=== PATIENT | male | born 1945 | race Caucasian/White ===

== ENCOUNTER → 2017-08-24 | Outpatient (CLI) | payer MEDICARE ==
[~2017-08-24] MED LIST: 1-ME1LIQ PO; ADVA500A INH; ALBU8I INH; ALPR0.5T7 SL; AMLO10TA2 PO; ASPI81TA23 PO; ASPI81TA82 PO; ASTE0.15 EACH NARE; ATOR80TA PO; ATOR80TA45 PO; BUSP5TAB PO; COLB500.5 PO; COZA100T PO; CYAN25005 PO; DICY10CA12 PO; DULC100C PO; DULC5TAB PO; FENO160T PO; FENO160T2 PO; FLAX1000 PO; FLUT50SP EACH NARE; FOLI1 PO; GABA300C5 PO; GLUC500T4 PO; GLUCTAB6 PO; IBUP600T26 PO; LOSA100T PO; MONT10TA4 PO; MULT-65 PO; NIAC100T3 PO; PERC5TAB12 PO; ROBA750T3 PO; SALM1000 PO; SALM10002 PO; SM F10002 PO; VIAG100T PO; VITA2000 PO; ZOLP10TA3 PO; [UNRECOGNIZED DRUG - CODE] SL; [UNRECOGNIZED DRUG - CODE] TOP; [UNRECOGNIZED DRUG - CODE] TOPICAL
[2017-08-24 08:45] LABS: BILIRUBIN, URINE NEG (NEG); BLOOD, URINE NEG (NEG); GLUCOSE,URINE NEG (NEG); KETONE, URINE NEG (NEG); NITRITE,URINE NEG (NEG); PH, URINE 6.5 (5.0-8.5); URINE COLOR YELLOW (YELLW/STRAW); URINE LEUKOCYTE ESTERASE NEG (NEG)
[2017-08-24 08:51] LABS: HEMOGLOBIN 15.2 GM/DL (13.0-17.0); MEAN CELL VOLUME 91.9 FL (80.0-100.0); MEAN CORPUSCULAR HGB CONC 33.8 % (32.0-36.0); PLATELET COUNT 247 TH/MM3 (150-450); RED CELL DISTRIBUTION WIDTH 14.5 % (11.6-17.2); WHITE BLOOD COUNT 5.3 TH/MM3 (4.0-11.0)
[2017-08-24 08:54] LABS: INTERNATIONAL NORMALIZED RATIO 1.1 RATIO; PROTHROMBIN TIME - PATIENT 11.1 SEC (9.8-11.6)
[2017-08-24 09:16] LABS: BICARBONATE 28.4 MEQ/L (21.0-32.0); CALCIUM 8.7 MG/DL (8.5-10.1); CREATININE 1.41 MG/DL (0.60-1.30)
== END ==
LOC: CPRE 08:00
PROVIDERS: ATTEND Orthopaedic Surgery
DX: Z01.812 Encounter for preprocedural laboratory examination (principal); M79.609 Pain in unspecified limb; M17.11 Unilateral primary osteoarthritis, right knee; I10 Essential (primary) hypertension
CPT/HCPCS: 36415; 80048; 81001; 85027; 85610; 85730

== ENCOUNTER 2017-09-07 05:13 | Day surgery (SDC) | payer MEDICARE ==
[~2017-09-07] VITALS: Ht 175.3 cm; Wt 95.8 kg
[~2017-09-07 05:13] MED LIST changes: -1-ME1LIQ PO; -ALBU8I INH; -ASPI81TA82 PO; -ASTE0.15 EACH NARE; -ATOR80TA PO; -COZA100T PO; -DULC5TAB PO; -FENO160T2 PO; -FOLI1 PO; -GLUCTAB6 PO; -IBUP600T26 PO; -MULT-65 PO; -NIAC100T3 PO; -PERC5TAB12 PO; -ROBA750T3 PO; -SALM1000 PO; -SM F10002 PO; -VIAG100T PO; -[UNRECOGNIZED DRUG - CODE] SL; -[UNRECOGNIZED DRUG - CODE] TOP
[2017-09-07] MEDS ORDERED: CHLORHEXIDINE GLUCONATE 2 % 1 PACK (2 CLOTHS) TOPICAL PRN (05:30)
[2017-09-07] MEDS ORDERED: SODIUM CHLORID 0.9% 500 ML IV PRN (05:30)
[2017-09-07] MEDS ORDERED: CHLORHEXIDINE GLUCONATE 4% SOLN 120 ML BTL TOPICAL SCH (05:30)
[2017-09-07] MEDS ORDERED: POVIDONE IODINE 5% (ANTISEPSIS KIT) 4 APPLICATIONS EACH NARE PRN (05:30)
[2017-09-07] MEDS ORDERED: METOPROLOL TARTRATE 25 MG TAB PO PRN (05:30)
[2017-09-07] MEDS ORDERED: ceFAZolin 2 GM PREMIX 50 ML IV SCH (05:30)
[2017-09-07] MEDS ORDERED: LACTATED RINGER'S 1000 ML IV PRN (05:30)
[2017-09-07 05:49] VITALS: BP 159/93; PULSE 69; RESP 18; TEMP 99; O2SAT 97
[2017-09-07] MEDS ORDERED: GENTAMICIN SULFATE 80 MG/2 ML VIAL ONE (06:17)
[2017-09-07] MEDS ORDERED: ACETAMINOPHEN 1000 MG/100 ML 0 ML IV ONE (06:25)
[2017-09-07] MEDS ORDERED: FAMOTIDINE 20 MG/2 ML VIAL ONE (06:25)
[2017-09-07] MEDS ORDERED: TRANEXAMIC ACID IV SCH ×2 (07:00→10:00)
[2017-09-07] MEDS ORDERED: EXPAREL PERI-ARTICULAR INJECTION (TOTAL VOL. 100 ML) P-ARTICULR SCH ×2 (07:00)
[2017-09-07] MEDS ORDERED: SODIUM CHLORIDE 0.9% IV SCH ×2 (07:00→10:00)
== END 2017-09-07 06:40 | disposition home or self-care (01) ==
LOC: HSDC 05:13 → HSDI 05:13 → UNDOADMIN 05:13 → HSDC 06:40 → EDSTATUS 07:00
PROVIDERS: ATTEND Orthopaedic Surgery
DX: M17.11 Unilateral primary osteoarthritis, right knee (principal); M79.609 Pain in unspecified limb; I10 Essential (primary) hypertension; R23.4 Changes in skin texture; Z53.09 Procedure and treatment not carried out because of other contraindication
CPT/HCPCS: 27447; C9290; J0131; J1580

== ENCOUNTER 2017-09-14 05:15 | Inpatient (IN) | payer MEDICARE ==
[~2017-09-14] VITALS: Ht 175.3 cm; Wt 95.7 kg
[2017-09-14] MEDS ORDERED: LACTATED RINGER'S 1000 ML IV PRN (05:45)
[2017-09-14] MEDS ORDERED: SODIUM CHLORID 0.9% 500 ML IV PRN (05:45)
[2017-09-14] MEDS ORDERED: POVIDONE IODINE 5% (ANTISEPSIS KIT) 4 APPLICATIONS EACH NARE PRN (05:45)
[2017-09-14] MEDS ORDERED: METOPROLOL TARTRATE 25 MG TAB PO PRN (05:45)
[2017-09-14] MEDS ORDERED: CHLORHEXIDINE GLUCONATE 2 % 1 PACK (2 CLOTHS) TOPICAL PRN (05:45)
[2017-09-14] MEDS ORDERED: POLY17PO3 PO (06:07)
[2017-09-14] MEDS ORDERED: CETI10CA3 PO (06:09)
[2017-09-14] MEDS ORDERED: GENTAMICIN SULFATE 80 MG/2 ML VIAL ONE (06:14)
[2017-09-14] MEDS ORDERED: ACETAMINOPHEN 1000 MG/100 ML 100 ML IV ONE (06:32)
[2017-09-14] MEDS ORDERED: PROPOFOL 500 MG/50 ML INJ 50 ML ONE (06:33)
[2017-09-14] MEDS ORDERED: FAMOTIDINE 20 MG/2 ML VIAL ONE (06:33)
[2017-09-14] MEDS ORDERED: BUPIVACAINE LIPOSOME PF 1.3% 20 ML VIAL ONE ×2 (06:33→15:11)
[2017-09-14] MEDS ORDERED: ceFAZolin 2 GM PREMIX 50 ML ONE (06:34)
--- NOTE | 2017-09-14 06:56 | HHI.FF ---
Face to Face Verification Diagnosis: (1) Status post total right knee replacement Physical Therapy Gait training Knee: Total knee, Protocol: Right, Gait training, Full weight bearing Right LE Weight Bearing: WB as tolerated Right LE Range of Motion: Active ROM (AROM, AAROM, PROM. ROM goal is 0 to 135 degrees.) Nursing Nursing: Dressing changes (to start on postop day 7.) Dressing Changes: Daily dressing change (to start on postop day 7.), Coverderm/ Prim[place] Additional Instructions Remove steristrips on postop day 14. I have seen patient Xavier Croft on 09/14/17. My clinical findings support the need for the requested home health care services because: Ltd mobility - disease progression Limited ability to care for self High risk of falls I certify that my clinical findings support that this patient is homebound because: Post-op weakness Unsteady gait/balance Unsafe to leave home unassisted Santosh Gordon MD (Charles) Sep 14, 2017 06:56
[2017-09-14] MEDS ORDERED: ACETAMINOPHEN/HYDROcodone 325 MG/7.5 MG TAB PO PRN (07:00)
[2017-09-14] MEDS ORDERED: MAGNESIUM HYDROXIDE SUSP 30 ML CUP PO PRN (07:00)
[2017-09-14] MEDS ORDERED: Post-op Orders (for Pharmacy) XX ONE (07:00)
[2017-09-14] MEDS ORDERED: MORPHINE SULFATE 4 MG/ML INJ IV PUSH PRN (07:00)
[2017-09-14] MEDS ORDERED: DICYCLOMINE HCL 10 MG CAP PO PRN (07:00)
[2017-09-14] MEDS ORDERED: ONDANSETRON HCL 4 MG/2 ML VIAL IVP PRN (07:00)
[2017-09-14] MEDS ORDERED: POLYETHYLENE GLYCOL 17 GM PKG PO PRN (07:00)
[2017-09-14] MEDS ORDERED: ZOLPIDEM TARTRATE 5 MG TAB PO PRN (07:00)
[2017-09-14] MEDS ORDERED: LORATADINE 10 MG TAB PO PRN (07:00)
[2017-09-14] MEDS ORDERED: TRANEXAMIC ACID IV SCH ×2 (07:00→10:00)
[2017-09-14] MEDS: KETOROLAC TROMETHAMINE 30 MG/ML (IVP) VIAL IVP SCH ×3 (07:00→19:00)
[2017-09-14] MEDS ORDERED: SODIUM CHLORIDE 0.9% IV SCH ×2 (07:00→10:00)
[2017-09-14] MEDS ORDERED: EXPAREL PERI-ARTICULAR INJECTION (TOTAL VOL. 100 ML) P-ARTICULR SCH ×2 (07:00)
[2017-09-14] MEDS ORDERED: ALPRAZolam 0.5 MG TAB SL PRN (07:00)
[2017-09-14] MEDS: FENOFIBRATE 145 MG TAB PO SCH (09:00)
[2017-09-14] MEDS ORDERED: GLUCOSAMINE CHONDROITIN PO SCH (09:00)
[2017-09-14] MEDS ORDERED: NUTRITIONAL SUPPLEMENTS PO SCH (09:00)
[2017-09-14] MEDS: busPIRone HCL 5 MG TAB PO SCH (09:00)
[2017-09-14] MEDS ORDERED: [UNRECOGNIZED DRUG - OTHER] PO SCH (09:00)
[2017-09-14] MEDS: CYANOCOBALAMIN 1,000 MCG TAB PO SCH (09:00)
[2017-09-14] MEDS: FLUTICASONE PROPIONATE 50 MCG/ACT 16 GM NASAL SPRAY EACH NARE SCH (09:00)
[2017-09-14] MEDS ORDERED: NON-FORMULARY DRUG (Fluticasone-Salmeterol Inh (Advair Diskus Inh) 1 PUFF) INH SCH (09:00)
[2017-09-14] MEDS: ASPIRIN EC 81 MG TABEC PO SCH ×2 (09:00→21:37)
[2017-09-14] MEDS: LOSARTAN 50 MG TAB PO SCH (09:00)
[2017-09-14] MEDS: CHOLECALCIFEROL (VIT D3) 1000 UNIT TAB PO SCH (09:00)
[2017-09-14] MEDS ORDERED: PROBENECID PO SCH (09:00)
[2017-09-14] MEDS ORDERED: FLAXSEED PO SCH (09:00)
[2017-09-14] MEDS ORDERED: COLCHICINE PO SCH (09:00)
--- NOTE | 2017-09-14 09:15 | HHI.PR ---
Immediate Post Op Note Procedure Date: Sep 14, 2017 Pre Op Diagnosis: (1) Primary osteoarthritis of right knee Post Op Diagnosis: (1) Primary osteoarthritis of right knee Surgeon: Young Gordon M.D. Authorization Manager(s): JAMES Kilgore Procedure: Right total knee arthroplasty with [employer] Triathlon prosthesis (uncemented) Findings: There was severe osteoarthritis in the right knee particularly in the medial compartment but also in the patellofemoral to a significant degree. There was loss of cartilage to bone on bone in the medial compartment. There was also eburnation with osteophytes Complications: None Specimen(s) removed: None Estimated blood loss: 150 mL Anesthesia: General, Regional Block (adductor canal block), Local (with bupivacaine liposomal) Drains: Hemovac IVF (2) Patient to: PACU Patient Condition: Good Implant/Devices: SEE IMPLANT LOG (if applicable) Date/Time of Procedure: SEE SURGICAL CARE RECORD Santosh Gordon MD (Charles) Sep 14, 2017 09:15
--- NOTE | 2017-09-14 09:33 | PD.OP ---
Operative Report Date of Surgery: Sep 14, 2017 Preoperative Diagnosis: (1) Primary osteoarthritis of right knee Postoperative Diagnosis: (1) Primary osteoarthritis of right knee Procedure: Right total knee arthroplasty using [place] Triathlon prosthesis (uncemented) Anesthesia: Gen. endotracheal with supplemental adductor canal block regional and local with bupivacaine liposomal Surgeon: Young Gordon M.D. Nut Picker(s): JAMES Kilgore Operation and Findings: Indications and Findings: This 72-year-old man has had long-standing right knee pain for at least the past 4 years. This has not responded to conservative measures including anti-inflammatory agents analgesics, activity modification, exercises and ambulatory aids. He continues to have pain with activities of daily living including ascending and descending stairs or ladders, walking distances and the like. Physical findings show degenerative varum in the right knee with medial laxity, medial tenderness and an effusion. Imaging studies including x-rays showed loss of articular cartilage [id number] in the medial compartment, osteophytes and eburnation. Operative findings: There was severe osteoarthritis in the right knee particularly in the medial compartment down to expose subchondral bone, eburnation and osteophytes. The prosthesis used was a [place] Triathlon prosthesis. The femur was a size 6, cruciate retaining, uncemented. The tibial baseplate was a size 6 Tritanium with a 9 mm, cruciate retaining, X3 polyethylene spacer. The patella was a size 38 mm asymmetric, Tritanium backed. The patient was brought to the clean-air operating suite. A spinal anesthetic was administered as well as a regional anesthetic by abductor canal block. The position was supine with a small bolster under the hip on the operative side. A pneumatic tourniquet was applied to the upper thigh. The lower extremity was then prepped with alcohol, Hibiclens and ChloraPrep and draped in the usual manner with the knee draped free. An appropriate timeout procedure was carried out. An incision was made from about 3 fingerbreadths above the superior medial pole of patella down the tibial tubercle on the medial side. The incision was deepened through the subcutaneous tissue to the retinacular structures which were exposed medially and laterally. A medial retinacular incision was then made from the superior middle pole of patella down the tibial tubercle and up into the quadriceps tendon splitting it longitudinally and the medial one third. The patella was reflected. The infrapatellar fat pad was debulked. The anterior cruciate ligament was excised. Medial and lateral meniscectomies were initiated. Fenestrations were made in the distal femur and proximal tibia for intramedullary referencing guides. The distal femoral cutting guide and jig were then assembled for a 5, 8 mm cut. When this was fit position and placed cutting block was stabilized with pins. The jig was removed. The distal femoral cut was then completed with the oscillating saw. The sizing guide was then positioned in place along Whitesides line and the epicondylar axis and stabilized with pins. The femoral size was then determined as noted above. The 4-in-1 cutting block was then positioned in place. Anterior and posterior cuts were made followed by posterior and anterior chamfer cuts taking care to prevent injury to ligamentous structures. Osteophytes were then trimmed from the distal femur. A bone plug was then placed into the fenestration of the distal femur. The proximal tibia was then exposed. The medial and lateral meniscectomies were completed. The proximal tibial cutting guide was then positioned in place and stabilized with a pin for rotation. The depth of cut was then verified with a stylus off the lateral side. The cutting block was stabilized with pins. The jig was removed. The depth of cut was then verified and adjusted appropriately with the use of the spacer block. The proximal tibial cut was then made with the oscillating saw taking care to prevent injury to neurovascular and ligamentous structures. Proximal tibial bone was removed. Local anesthetic was administered with Exparel in the posterior capsule. The tibial baseplate trial was then positioned in place. After verifying the appropriate size, the base plate trial was positioned in place along with its spacer. The femoral component was then impacted into place. The alignment was checked. The tibial baseplate was then pinned in place on the tibia. Attention was directed to the patella. The patella drill guide was positioned in place for the appropriate sized patella. Patellar drilling was then carried out. The trial patella was positioned in place. The knee was taken through a range of motion which was easily 0 extension to 140. The patella trial was removed. The femoral drill holes were made. The femoral trials were removed. The tibial spacer was removed. A bone plug was placed into the proximal tibia. The tibial punch was impacted through the proximal tibial punch guide. This was all removed followed by placement of the tibial drill guide. The tibial drill holes were then made. The guide was removed. The cut ends of bone were then cleaned with pulse lavage. The tibial baseplate was then impacted into place and seated appropriately. The spacer was inserted. The the femoral component was then impacted into place and seated appropriately. The patella component was then seated with the patellar vice and tightened appropriately. The knee was taken through a range of motion which was comparable to the previous range of motion with excellent stability in flexion and extension and appropriate patellofemoral tracking. The remainder of the Exparel was then injected throughout the knee as a local anesthetic. Drains were brought out the superior lateral aspect of the suprapatellar pouch. Wound closure then commenced using 0 Vicryl interrupted [id number] sutures for the capsular and fascial structures, 2-0 Vicryl interrupted simple sutures with buried knots for the subcutaneous tissues and 4- 0 Monocryl, tenuous subcuticular closure for the skin. The wound was then dressed with Steri-Strips followed by Optifoam silver impregnated dressing. Sterile soft roll with a cooling pad and Geovanny bandage from the base of the toes to mid thigh were then applied. Patient was then transferred from the operating room to the recovery room in satisfactory condition having tolerated procedure well. Counts are correct. Specimens: None. Estimated blood loss: 150 mL Santosh Gordon MD (Charles) Sep 14, 2017 09:33
[2017-09-14] MEDS ORDERED: HYDR-3580 PO (09:34)
[2017-09-14] MEDS: LACTATED RINGER'S 1000 ML INJ 1,000 ML IV SCH ×2 (09:40→19:18)
[2017-09-14] MEDS ORDERED: *morphine SULFATE 10 MG/ML PERIprocedure ONLY ONE (09:43)
[2017-09-14] MEDS ORDERED: TACROLIMUS 0.03% TOPICAL SCH ×2 (10:00→21:00)
[2017-09-14] MEDS ORDERED: CHLORHEXIDINE GLUCONATE 4% SOLN 120 ML BTL TOPICAL SCH (10:00)
[2017-09-14] MEDS ORDERED: ceFAZolin 2 GM PREMIX 50 ML IV SCH (10:00)
--- NOTE | 2017-09-14 10:00 | RADRPT ---
EXAM DATE/TIME: 09/14/2017 09:44 [facility] COMPARISON: No previous studies available for comparison. INDICATIONS : Post op, right knee replacement. MEDICAL HISTORY : None. SURGICAL HISTORY : None. ENCOUNTER: Initial ACUITY: 1 day PAIN SCORE: 0/10 LOCATION: Right knee FINDINGS: Two view examination of the right knee demonstrates no evidence of fracture or dislocation. Right kne e arthroplasty. Post surgical changes. Drain in place. No hardware loosening. CONCLUSION: Right knee arthroplasty. Mushtaq Rivas MD on September 14, 2017 at 9:54 Board Certified Radiologist. This report was verified electronically.
[2017-09-14] MEDS ORDERED: DO NOT ADM ANY ANTICOAGULANT DRUGS PRN (10:15)
[2017-09-14] MEDS: BUDESONIDE-FORMOTEROL 160/4.5 MCG INHALER INH SCH ×2 (11:00→21:00)
[2017-09-14] MEDS ORDERED: *morphine SULFATE 4 MG/ML PERIprocedure ONLY ONE (13:24)
[2017-09-14 14:25] VITALS: BP 121/76; PULSE 81; RESP 18; TEMP 95.5; O2SAT 94
[2017-09-14] MEDS ORDERED: MIDAZOLAM HCL 2 MG/2 ML VIAL ONE (15:11)
--- NOTE | 2017-09-14 15:41 | PD.CONS ---
HPI Service [facility] Consult Requested By Dr. Gordon from orthopedic service Reason for Consult Medical management Primary Care Physician Kallie Castaneda D.O. Diagnoses: History of Present Illness Patient is a very pleasant 72-year-old male with known history of seasonal allergy, hypertension, hyperlipidemia, chronic low back pain with some neuropathy who was admitted electively today and underwent right total knee arthroplasty by Dr. Gordon. The patient still very independent with ADLs placed golf a lot and does a lot of walking however increasing pain of the red right knee progressively feels like "ready to give out" prompted this surgery. Patient currently seen postop awake alert boarded denies any pain. Review of Systems Constitutional: DENIES: Diaphoretic episodes, Fatigue, Fever, Weight gain, Weight loss, Chills, Dizziness, Change in appetite, Night Sweats Endocrine: DENIES: Heat/cold intolerance, Polydipsia, Polyuria, Polyphagia Eyes: DENIES: Blurred vision, Diplopia, Eye inflammation, Eye pain, Vision loss , Photosensitivity, Double Vision Ears, nose, mouth, throat: DENIES: Tinnitus, Hearing loss, Vertigo, Nasal discharge, Oral lesions, Throat pain, Hoarseness, Ear Pain, Running Nose, Epistaxis, Sinus Pain, Toothache, Odynophagia Respiratory: DENIES: Apneas, Cough, Snoring, Wheezing, Hemoptysis, Sputum production, Shortness of breath Cardiovascular: DENIES: Chest pain, Palpitations, Syncope, Dyspnea on Exertion , PND, Lower Extremity Edema, Orthopnea, Claudication Gastrointestinal: DENIES: Abdominal pain, Black stools, Bloody stools, Constipation, Diarrhea, Nausea, Vomiting, Difficulty Swallowing, Anorexia Genitourinary: DENIES: Sexual dysfunction, Urinary frequency, Urinary incontinence, Urgency, Hematuria, Dysuria, Nocturia, Penile Discharge, Testicular Pain, Testicular Swelling Musculoskeletal: COMPLAINS OF: Joint pain (right knee pain) Integumentary: DENIES: Abnormal pigmentation, Nail changes, Pruritus, Rash Hematologic/lymphatic: DENIES: Bruising, Lymphadenopathy Immunologic/allergic: DENIES: Eczema, Urticaria Neurologic: DENIES: Abnormal gait, Headache, Localized weakness, Paresthesias, Seizures, Speech Problems, Tremor, Poor Balance Psychiatric: DENIES: Anxiety, Confusion, Mood changes, Depression, Hallucinations, Agitation, Suicidal Ideation, Homicidal Ideation, Delusions Past Family Social History Allergies: Coded Allergies: No Known Allergies (Unverified Allergy, Unknown, 09/14/17) Past Medical History Hypertension Hyperlipidemia Chronic low back pain with some neuropathy Seasonal allergy Past Surgical History L4-L5 surgery in 2005 Left total knee arthroplasty in 2014 Reported Medications As an outpatient Zyrtec Fenofibrate 8 pravastatin Amlodipine Losartan Aspirin Lortab 7.5 when necessary for pain Gabapentin On Symbicort Active Ordered Medications See EMR Family History Noncontributory Social History History of smoking quit 1985 Very occasional alcohol use Physical Exam Vital Signs Vital Signs Date Time Temp Pulse Resp B/P (MAP) Pulse Ox O2 Delivery O2 Flow Rate FiO2 09/14/17 14:25 95.5 81 18 121/76 (91) 94 09/14/17 14:00 97.5 70 12 136/69 (91) 93 Nasal Cannula 2 09/14/17 13:00 67 16 140/73 (95) 93 09/14/17 12:00 73 9 119/59 (79) 93 09/14/17 11:15 64 10 131/71 (91) 94 09/14/17 11:00 61 11 131/71 (91) 93 09/14/17 10:45 61 12 133/71 (91) 93 09/14/17 10:30 63 13 140/73 (95) 92 09/14/17 10:15 60 8 127/69 (88) 93 09/14/17 10:00 60 15 112/59 (76) 91 09/14/17 09:45 60 16 122/59 (80) 90 09/14/17 09:32 97.8 102 16 138/78 (98) 91 Nasal Cannula 4 09/14/17 05:55 98.5 72 20 133/86 (102) 95 Physical Exam GENERAL: , in no apparent distress. SKIN: No rashes, HEAD: Atraumatic. EYES: Pupils equal round and reactive. Extraocular motions intact. No scleral icterus. ENT: Nose without bleeding. Throat without erythema, Airway patent. NECK: Trachea midline. No JVD or lymphadenopathy. Supple, nontender, no meningeal signs. CARDIOVASCULAR: Regular rate and rhythm without murmurs, gallops, or rubs. RESPIRATORY: Clear to auscultation. Breath sounds equal bilaterally. No wheezes , rales, or rhonchi. GASTROINTESTINAL: Abdomen soft, non-tender, nondistended.No guarding. MUSCULOSKELETAL: Right lower extremity on CPM. Grossly sensory intact both lower extremity NEUROLOGICAL: Awake and alert. Cranial nerves II through XII intact. Motor and sensory grossly within normal limits. Normal speech. Imaging Last Impressions Knee X-Ray 09/14/17 0648 Signed Impressions: Service Date/Time: Thursday, September 14, 2017 09:44 - CONCLUSION: Right knee arthroplasty. Mushtaq Rivas MD Assessment and Plan Assessment and Plan 72-year-old male Status post right knee total arthroplasty postop day 0. When necessary pain meds. PT consult. Orthopedic service following prn pain meds History of hypertension continue amlodipine and losartan History of hyperlipidemia. Continue on fenofibrate and atorvastatin History of chronic back pain continue on gabapentin. History of seasonal allergies continue Zyrtec. Continue MDIs DVT prophylaxis patient started on aspirin twice a day. Discharge planning patient and prefers to go home with home PT. Case management consulted for DMEs and home health needs. Thank you for this consultation follow patient in-house with you Discussed Condition With Patient Suly Auguste MD Sep 14, 2017 15:41
--- NOTE | 2017-09-14 19:19 | EKG ---
Date Performed: 09/14/2017 Time Performed: 06:39:35 PTAGE: 72 years EKG: Sinus rhythm Since previous tracing, no significant change noted NORMAL ECG PREVIOUS TRACING : 06/19/2015 06.20 DOCTOR: Edmundo Keane Interpretating Date/Time 09/14/2017 19:17:06
[2017-09-14 19:54] VITALS: BP 141/81; PULSE 65; RESP 17; TEMP 96.8; O2SAT 95
[2017-09-14] MEDS ORDERED: GABAPENTIN 300 MG CAP PO SCH (21:00)
[2017-09-14] MEDS ORDERED: ATORVASTATIN 80 MG TAB PO SCH (21:00)
[2017-09-14] MEDS ORDERED: MONTELUKAST SODIUM 10 MG TAB PO SCH (21:00)
[2017-09-14] MEDS: POLYETHYLENE GLYCOL 17 GM PKG PO SCH (21:36)
[2017-09-14 23:57] VITALS: BP 131/76; PULSE 60; RESP 17; TEMP 96.8; O2SAT 97
[2017-09-15] MEDS: KETOROLAC TROMETHAMINE 30 MG/ML (IVP) VIAL IVP SCH ×3 (02:09→12:35)
[2017-09-15 03:50] VITALS: BP 120/67; PULSE 73; RESP 17; TEMP 97.8; O2SAT 95
[2017-09-15] MEDS: ACETAMINOPHEN/HYDROcodone 325 MG/7.5 MG TAB PO PRN ×2 (05:48→12:33)
--- NOTE | 2017-09-15 06:02 | PD.ORT.PN ---
Subjective Post Op Day #: 1 Subjective Remarks He is doing well. He has minimal complaints related to his knee at this time. He has been walking without any difficulty. Range of Motion 0 to 93. Distance Walked 35 feet, then 90 feet. Objective Vitals Vital Signs Date Time Temp Pulse Resp B/P (MAP) Pulse Ox O2 Delivery O2 Flow Rate FiO2 09/15/17 03:50 97.8 73 17 120/67 (84) 95 09/14/17 23:57 96.8 60 17 131/76 (94) 97 09/14/17 19:54 96.8 65 17 141/81 (101) 95 09/14/17 14:25 95.5 81 18 121/76 (91) 94 09/14/17 14:00 97.5 70 12 136/69 (91) 93 Nasal Cannula 2 09/14/17 13:00 67 16 140/73 (95) 93 09/14/17 12:00 73 9 119/59 (79) 93 09/14/17 11:15 64 10 131/71 (91) 94 09/14/17 11:00 61 11 131/71 (91) 93 09/14/17 10:45 61 12 133/71 (91) 93 09/14/17 10:30 63 13 140/73 (95) 92 09/14/17 10:15 60 8 127/69 (88) 93 09/14/17 10:00 60 15 112/59 (76) 91 09/14/17 09:45 60 16 122/59 (80) 90 09/14/17 09:32 97.8 102 16 138/78 (98) 91 Nasal Cannula 4 I/O 09/14/17 09/14/17 09/14/17 09/15/17 09/15/17 09/15/17 07:00 15:00 23:00 07:00 15:00 23:00 Intake Total 1985 ml 360 ml Output Total 450 ml 955 ml Balance 1535 ml -595 ml Intake Oral 400 ml 360 ml IV Total 385 ml Other 1200 ml Output Urine Total 725 ml Drainage Total 300 ml 230 ml Estimated Blood Loss 150 ml # Bowel Movements 0 Imaging Last 24 hours Impressions Knee X-Ray 09/14/17 0648 Signed Impressions: Service Date/Time: Thursday, September 14, 2017 09:44 - CONCLUSION: Right knee arthroplasty. Mushtaq Rivas MD Objective Remarks He is resting comfortably, supine in bed, in the CPM. The neurovascular status is intact. The dressing is dry and intact. Assessment & Plan Ortho Post Op Day #: 1 Problem List: (1) Status post total right knee replacement ICD Codes: Z96.651 - Presence of right artificial knee joint Status: Resolved (2) Primary osteoarthritis of right knee ICD Codes: M17.11 - Unilateral primary osteoarthritis, right knee Plan: Continue postop care and PT. Assessment and Plan Condition: Good. Orthopedically stable. DVT prophylaxis: TEDs, aspirin, sequentials. Discharge plans: Home with home health care. An appointment was scheduled through the office. Prescriptions: [place] 7.5/325 I have discussed his findings at surgery with him. Santosh Gordon MD (Charles) Sep 15, 2017 06:02
[2017-09-15 06:53] LABS: HEMATOCRIT 34.3 % (39.0-51.0)
[2017-09-15] MEDS: LACTATED RINGER'S 1000 ML INJ 1,000 ML IV SCH (07:48)
[2017-09-15 08:00] VITALS: BP 132/71; PULSE 60; RESP 18; TEMP 96.9; O2SAT 96
[2017-09-15] MEDS: FLUTICASONE PROPIONATE 50 MCG/ACT 16 GM NASAL SPRAY EACH NARE SCH (09:00)
[2017-09-15] MEDS: FENOFIBRATE 145 MG TAB PO SCH (09:00)
[2017-09-15] MEDS: BUDESONIDE-FORMOTEROL 160/4.5 MCG INHALER INH SCH (09:00)
[2017-09-15] MEDS ORDERED: PROBENECID PO SCH (09:00)
[2017-09-15] MEDS ORDERED: COLCHICINE PO SCH (09:00)
--- NOTE | 2017-09-15 09:06 | HHI.PR ---
Subjective Remarks pain controlled already up and ambualting with a walker voiding spontaneously Objective Vitals Vital Signs Date Time Temp Pulse Resp B/P (MAP) Pulse Ox O2 Delivery O2 Flow Rate FiO2 09/15/17 08:00 96.9 60 18 132/71 (91) 96 09/15/17 03:50 97.8 73 17 120/67 (84) 95 09/14/17 23:57 96.8 60 17 131/76 (94) 97 09/14/17 19:54 96.8 65 17 141/81 (101) 95 09/14/17 14:25 95.5 81 18 121/76 (91) 94 09/14/17 14:00 97.5 70 12 136/69 (91) 93 Nasal Cannula 2 09/14/17 13:00 67 16 140/73 (95) 93 09/14/17 12:00 73 9 119/59 (79) 93 09/14/17 11:15 64 10 131/71 (91) 94 09/14/17 11:00 61 11 131/71 (91) 93 09/14/17 10:45 61 12 133/71 (91) 93 09/14/17 10:30 63 13 140/73 (95) 92 09/14/17 10:15 60 8 127/69 (88) 93 09/14/17 10:00 60 15 112/59 (76) 91 09/14/17 09:45 60 16 122/59 (80) 90 09/14/17 09:32 97.8 102 16 138/78 (98) 91 Nasal Cannula 4 I/O 09/14/17 09/14/17 09/14/17 09/15/17 09/15/17 09/15/17 07:00 15:00 23:00 07:00 15:00 23:00 Intake Total 1985 ml 360 ml 360 ml Output Total 450 ml 955 ml 850 ml Balance 1535 ml -595 ml -490 ml Intake Oral 400 ml 360 ml 360 ml IV Total 385 ml Other 1200 ml Output Urine Total 725 ml 850 ml Drainage Total 300 ml 230 ml Estimated Blood Loss 150 ml # Bowel Movements 0 0 Result Diagram: 09/15/17 0540 Imaging Last Impressions Knee X-Ray 09/14/17 0648 Signed Impressions: Service Date/Time: Thursday, September 14, 2017 09:44 - CONCLUSION: Right knee arthroplasty. Mushtaq Rivas MD Objective Remarks awake and alert, anicteric lungs clear regular rhythm abdomensoft, notnender extremities- post op dressing in place- hemovac in place gait- steady with a walker A/P Assessment and Plan 72-year-old male Status post right knee total arthroplasty 09/14. doing great- very motivated with therapy History of hypertension continue amlodipine and losartan History of hyperlipidemia. Continue on fenofibrate and atorvastatin History of chronic back pain continue on gabapentin. History of seasonal allergies continue Zyrtec. Continue MDIs DVT prophylaxis patient started on aspirin twice a day. For DC home today OP ff up with orthopedics Ff up with PCP - Dr Castaneda- as needed Suly Auguste MD Sep 15, 2017 09:06
[2017-09-15] MEDS: LOSARTAN 50 MG TAB PO SCH (09:25)
[2017-09-15] MEDS: busPIRone HCL 5 MG TAB PO SCH (09:26)
[2017-09-15] MEDS: ASPIRIN EC 81 MG TABEC PO SCH (09:26)
[2017-09-15] MEDS: POLYETHYLENE GLYCOL 17 GM PKG PO SCH (09:28)
[2017-09-15] MEDS: CYANOCOBALAMIN 1,000 MCG TAB PO SCH (09:28)
[2017-09-15] MEDS: CHOLECALCIFEROL (VIT D3) 1000 UNIT TAB PO SCH (09:28)
[2017-09-15 11:41] VITALS: BP 129/73; PULSE 52; RESP 18; TEMP 96.6; O2SAT 94
[2017-09-15] MEDS ORDERED: DOCUSATE SODIUM 100 MG CAP PO SCH (21:00)
--- NOTE | 2017-09-17 08:33 | HHI.DS ---
Discharge Summary Admission Date Sep 14, 2017 at 06:49 Discharge Date: Sep 15, 2017 Admitting Diagnosis Primary osteoarthritis, right knee. Diagnosis: (1) Status post total right knee replacement Diagnosis: Principal ICD Codes: Z96.651 - Presence of right artificial knee joint Status: Resolved (2) Primary osteoarthritis of right knee Diagnosis: Principal ICD Codes: M17.11 - Unilateral primary osteoarthritis, right knee Procedures Right total knee arthroplasty using [place] Triathlon prosthesis (uncemented) on 09/14/2017. Brief History This is a 72 year old male patient has had long-standing right knee pain nonresponsive to conservative measures secondary to osteoarthritis. He has been treated with anti-inflammatory agents, analgesics, activity modification, exercise and external support without improvement. Physical findings showed significant tenderness in the medial compartment with crepitation on range of motion. He had an antalgic gait. There is medial laxity. There is genu varum. X-rays of time of admission showed loss of articular cartilage to bone on bone in the medial compartment with eburnation and osteophytes. CBC/BMP: 09/15/17 0540 Significant Findings Laboratory Tests Test 09/15/17 05:40 Hemoglobin 12.0 GM/DL (13.0-17.0) Hematocrit 34.3 % (39.0-51.0) Imaging X-rays postoperatively showed good position alignment of the total knee prosthesis. PE at Discharge He is resting comfortably, supine in bed, in the CPM. The neurovascular status is intact. The dressing is dry and intact. Hospital Course The patient was admitted as noted above. The above noted operative procedure was carried out that day. Preoperatively prophylactic antibiotics were administered Ancef according to protocol. These were continued postoperatively. The patient also received tranexamic acid to help with hemostasis according to protocol. In the postanesthesia care unit a continuous passive motion device was initiated. Also initiated were mechanical methods of DVT prophylaxis in the form of MERRICK stockings and sequentials. Physical therapy was initiated on the day of surgery. On postoperative day #1 physical therapy continued. The use of the continuous passive motion device continued. DVT prophylaxis with aspirin was initiated at this time. The patient continued physical therapy throughout the hospitalization. The distance walked and range of motion improved throughout the hospitalization. The patient was discharged on postoperative day 1 with the disposition being to home with home health care. An appointment for follow-up was made prior to admission. Pt Condition on Discharge: Good Discharge Disposition: Disch w/ Home Health Serv Discharge Instructions Diet Instructions: As Tolerated, No Restrictions Activities You Can Perform: Full Weight Bearing, Shower Only-No Bath Activities to Avoid: Lifting/Bending, Strenuous Activity, Bathing, Driving Follow up Referrals: Orthopedics with Santosh Gordon MD ([facility]) New Medications: Hydrocodone/Acetaminophen (Hydrocodone-Acetamin 7.5-325) 7.5 Mg-325 Mg Tablet 1 TAB PO Q4H PRN for PAIN SCALE 1 TO 10, #50 TAB Continued Medications: Alprazolam ODT (Alprazolam ODT) 0.5 Mg Tab 0.5 MG SL Q6H PRN for ANXIETY, TAB 0 Refills Amlodipine (Amlodipine) 10 Mg Tab 10 MG PO DAILY for Blood Pressure Management, #30 TAB [address] (Aspirin EC) 81 Mg Tabdr 162 MG PO DAILY, TAB 0 Refills Atorvastatin (Atorvastatin) 80 Mg Tab 80 MG PO HS for Cholesterol Management, #30 TAB 0 Refills Buspirone (Buspirone) 5 Mg Tab 5 MG PO DAILY for Anxiety, TAB 0 Refills Cetirizine HCl (Zyrtec) 10 Mg Capsule 1 CAP PO DAILY PRN for ALLERGIES Cholecalciferol (Vitamin D3) 2,000 Unit Cap 2000 UNITS PO DAILY for Nutritional Supplement, #1 BOTTLE 0 Refills Cyanocobalamin (Vitamin B-12) (Vitamin B12) 2,500 Mcg Tab.chew 5000 MCG PO DAILY Dicyclomine (Dicyclomine) 10 Mg Cap 10 MG PO QID PRN for SPASM, CAP 0 Refills Fenofibrate (Fenofibrate) 160 Mg Tab 160 MG PO DAILY, #30 TAB 0 Refills Flaxseed (Linseed) (Flaxseed Oil) 1,000 Mg Cap 1400 MG PO DAILY Fluticasone Nasal [place] (Fluticasone Nasal Erwin) 50 Mcg/Act Naspr 50 MCG EACH NARE DAILY for Allergy Management, #1 BOTTLE 0 Refills 50 mcg/spray Fluticasone-Salmeterol Inh (Advair Diskus Inh) 500-50 Mcg/Blist Aer 1 PUFF INH BID, #1 INHALER 0 Refills Rinse mouth after use. Gabapentin (Gabapentin) 300 Mg Cap 300 MG PO HS, #30 CAP 0 Refills Glucosamine-Chondroitin (Glucosamine-Chondroitin) 500-400 Mg Tab 2 TAB PO DAILY for Herbal Supplements, TAB 0 Refills Losartan (Losartan) 100 Mg Tab 100 MG PO DAILY for Blood Pressure Management, #30 TAB 0 Refills Montelukast (Montelukast) 10 Mg Tab 10 MG PO HS, #30 TAB 0 Refills Nutritional Supplements ([place] Oil) 1,000 Mg-200 Mg Cap 4000 MG PO DAILY Polyethylene Glycol 3350 (Miralax) 17 Gram Powd.pack 1 PACKET PO DAILY PRN for CONSTIPATION Probenecid-Colchicine (Probenecid-Colchicine) 0.5-500 mg Tab 1 TAB PO DAILY for Gout, #30 TAB 0 Refills Tacrolimus Topical 0.03% (Protopic Topical 0.03%) 0.03 % Oint 1 APPLIC TOPICAL BID, #1 TUBE 0 Refills Zolpidem (Zolpidem) 10 Mg Tab 10 MG PO HS PRN for INSOMNIA, TAB 0 Refills Santosh Gordon MD ([facility]) Sep 17, 2017 08:33
== END 2017-09-15 14:04 | disposition home health service (06) | DRG 470 ==
LOC: HSDC 05:15 → N06B 06:49 → EDSTATUS 13:00
PROVIDERS: ADMIT Orthopaedic Surgery; ATTEND Orthopaedic Surgery
PROC: 3E0T3BZ Introduction of Anesthetic Agent into Peripheral Nerves and Plexi, Percutaneous Approach (ICD-10-PCS; 2017-09-14)
PROC: 0SRC0JA Replacement of Right Knee Joint with Synthetic Substitute, Uncemented, Open Approach (ICD-10-PCS; principal; 2017-09-14 06:42)
DX: M17.11 Unilateral primary osteoarthritis, right knee (principal); G62.9 Polyneuropathy, unspecified; E78.5 Hyperlipidemia, unspecified; M25.761 Osteophyte, right knee; M21.161 Varus deformity, not elsewhere classified, right knee; M54.5 Low back pain; J30.2 Other seasonal allergic rhinitis; G89.29 Other chronic pain; K21.9 Gastro-esophageal reflux disease without esophagitis; I12.9 Hypertensive chronic kidney disease with stage 1 through stage 4 chronic kidney disease, or unspecified chronic kidney disease; N18.9 Chronic kidney disease, unspecified; M10.9 Gout, unspecified; H91.90 Unspecified hearing loss, unspecified ear; F32.9 Major depressive disorder, single episode, unspecified; F41.9 Anxiety disorder, unspecified; Z87.891 Personal history of nicotine dependence; Z96.652 Presence of left artificial knee joint
CPT/HCPCS: 73560; 85014; 85018; 86850; 86900; 86901; 86920; 93005; 94150; C1776; C9290; J0131; J0690; J1580; J1885; J2250; J2270; J2405; J3010; J7120

== ENCOUNTER 2017-11-28 08:11 | Emergency (ER) | payer MEDICARE ==
[~2017-11-28 08:11] MED LIST changes: +CETI10CA3 PO; -DULC100C PO; +HYDR-3580 PO; +POLY17PO3 PO
[2017-11-28 08:16] VITALS: BP 163/79; PULSE 98; RESP 20; TEMP 97.7; O2SAT 98
--- NOTE | 2017-11-28 08:52 | RADRPT ---
EXAM DATE/TIME: 11/28/2017 08:35 [facility] COMPARISON: KNEE RIGHT LTD (1 OR 2 VWS), September 14, 2017, 9:44. INDICATIONS : Right knee pain and swelling. Pain around whole knee. No known injury. MEDICAL HISTORY : None. SURGICAL HISTORY : Bilateral knee replacements. ENCOUNTER: Initial ACUITY: 3 days PAIN SCORE: 3/10 LOCATION: Right knee. FINDINGS: Marked soft tissue swelling. Small joint effusion. Anatomic alignment. No fracture. CONCLUSION: Joint effusion otherwise negative. Juan Laguna MD FACR on November 28, 2017 at 8:50 Board Certified Radiologist. This report was verified electronically.
[2017-11-28] MEDS ORDERED: PRED20 PO (09:31)
--- NOTE | 2017-11-28 09:31 | PD ---
HPI Chief Complaint: Musculoskeletal Complaint Time Seen by Provider: 09:15 Travel History International Travel<30 days: No Contact w/Intl Traveler<30days: No Traveled to known affect area: No History of Present Illness HPI Patient is a 72-year-old male presents emergency department for evaluation of right knee swelling. Patient states he has a history of arthritis in the right knee, status post knee replacement by Dr. Mir, states she has done several months ago and he has had some swelling since then but never swelling and pain. No fevers no history of gonorrhea no history of diabetes HIV and no injury pattern that he can think of. He states symptoms started this morning, constant , associated signs symptoms in context as above PFSH Past Medical History Anxiety: Yes Cancer: No Cardiovascular Problems: No High Cholesterol: Yes Diabetes: No Diminished Hearing: No Endocrine: No Gastrointestinal Disorders: Yes (CONSTIPATION) Gout: Yes Genitourinary: No Hepatitis: Yes (B) Hiatal Hernia: No Hypertension: Yes Immune Disorder: No Musculoskeletal: Yes (KNEE, ARTHRITIS, BACK) Neurologic: Yes (R FOOT NUMB) Psychiatric: Yes (PTSD) Reproductive: No Respiratory: No Thyroid Disease: No Past Surgical History Abdominal Surgery: No AICD: No Cardiac Surgery: Yes (CARDIAC CATH) Ear Surgery: No Eye Surgery: Yes (UPPER BLEPH) Genitourinary Surgery: No Joint Replacement: Yes (L KNEE) Neurologic Surgery: Yes (L4 L5) Oral Surgery: No Pacemaker: No Thoracic Surgery: No Social History Alcohol Use: Yes (DAILY GLASS OF WINE) Tobacco Use: No Substance Use: No Allergies-Medications (Allergen,Severity, Reaction): Coded Allergies: No Known Allergies (Unverified Allergy, Unknown, 09/14/17) Reported Meds & Prescriptions Reported Meds & Active Scripts Active Ultram (Tramadol HCl) 50 Mg Tab 50 Mg PO Q6H PRN Prednisone 20 Mg Tab 40 Mg PO DAILY 5 Days Hydrocodone-Acetamin 7.5-325 (Hydrocodone/Acetaminophen) 7.5 Mg-325 Mg Tablet 1 Tab PO Q4H PRN Reported Zyrtec (Cetirizine HCl) 10 Mg Capsule 1 Cap PO DAILY PRN Miralax (Polyethylene Glycol 3350) 17 Gram Powd.pack 1 Packet PO DAILY PRN Montelukast (Montelukast Sodium) 10 Mg Tab 10 Mg PO HS Gabapentin 300 Mg Cap 300 Mg PO HS Fluticasone Nasal Priddy 50 Mcg/Act Naspr 50 Mcg EACH NARE DAILY 50 mcg/spray Vitamin B12 (Cyanocobalamin (Vitamin B-12)) 2,500 Mcg Tab.chew 5,000 Mcg PO DAILY Vitamin D3 (Cholecalciferol) 2,000 Unit Cap 2,000 Units PO DAILY Dicyclomine (Dicyclomine HCl) 10 Mg Cap 10 Mg PO QID PRN Advair Diskus Inh (Fluticasone-Salmeterol Inh) 500-50 Mcg/Blist Aer 1 Puff INH BID Rinse mouth after use. Zolpidem (Zolpidem Tartrate) 10 Mg Tab 10 Mg PO HS PRN Flaxseed Oil (Flaxseed (Linseed)) 1,000 Mg Cap 1,400 Mg PO DAILY Fenofibrate 160 Mg Tab 160 Mg PO DAILY Alprazolam ODT (Alprazolam) 0.5 Mg Tab 0.5 Mg SL Q6H PRN Protopic Topical 0.03% (Tacrolimus Topical 0.03%) 0.03 % Oint 1 Applic TOPICAL BID Buspirone (Buspirone HCl) 5 Mg Tab 5 Mg PO DAILY Glucosamine-Chondroitin 500-400 Mg Tab 2 Tab PO DAILY [place] Oil (Nutritional Supplements) 1,000 Mg-200 Mg Cap 4,000 Mg PO DAILY Aspirin EC (Aspirin) 81 Mg Tabdr 162 Mg PO DAILY Atorvastatin (Atorvastatin Calcium) 80 Mg Tab 80 Mg PO HS Losartan (Losartan Potassium) 100 Mg Tab 100 Mg PO DAILY Amlodipine (Amlodipine Besylate) 10 Mg Tab 10 Mg PO DAILY Probenecid-Colchicine (Probenecid/Colchicine) 0.5-500 mg Tab 1 Tab PO DAILY Review of Systems Except as stated in HPI: all other systems reviewed are Neg Physical Exam Narrative GENERAL: Well-nourished, well-developed patient. SKIN: Focused skin assessment warm/dry. HEAD: Normocephalic. EYES: No scleral icterus. No injection or drainage. NECK: Supple, trachea midline. No JVD or lymphadenopathy. CARDIOVASCULAR: Regular rate and rhythm without murmurs, gallops, or rubs. RESPIRATORY: Breath sounds equal bilaterally. No accessory muscle use. GASTROINTESTINAL: Abdomen soft, non-tender, nondistended. MUSCULOSKELETAL: No cyanosis, right knee surgical site is well-healed, patient does have intact range of motion which is minimally tender, the joint is warm but not hot, no overlying erythema. There is a significant joint effusion. Compartments are soft, pulse motor and sensory intact distally, no tenderness of the ankle or hip, contralateral knee also has a well-healed surgical scar but is otherwise unimpressive. There is no laxity of the knee. BACK: Nontender without obvious deformity. No CVA tenderness. Data Data Last Documented VS Vital Signs Date Time Temp Pulse Resp B/P (MAP) Pulse Ox O2 Delivery O2 Flow Rate FiO2 11/28/17 08:16 97.7 98 20 163/79 (107) 98 Orders Orders Knee, Complete (4vws) (11/28/17 ) ^ Knee Immobilizer (11/28/17 09:29) Ed Discharge Order (11/28/17 09:32) MDM Medical Decision Making Medical Screen Exam Complete: Yes Emergency Medical Condition: Yes Differential Diagnosis Knee effusion, knee sprain, knee sprain, arthritis Narrative Course Patient room to the emergency department, is no indication for emergent arthrocentesis, I highly doubt infectious component. Discussed symptomatic management knee immobilization, he is using a cane is able to walk with knee immobilizer. Discussed need follow-up with Dr. Mir for further workup. He is stable for discharge Diagnosis Primary Impression: Joint effusion of knee Qualified Codes: M25.461 - Effusion, right knee Patient Instructions: General Instructions, RICE Therapy (GEN) Med/Other Pt SpecificInfo: Prescription(s) given Scripts Tramadol (Ultram) 50 Mg Tab 50 MG PO Q6H Y for PAIN, #10 TAB 0 Refills Prov: Selvin Zambrano MD 11/28/17 Prednisone (Prednisone) 20 Mg Tab 40 MG PO DAILY for 5 Days, #10 TAB 0 Refills Prov: Selvin Zambrano MD 11/28/17 Disposition: DISCHARGE HOME Condition: Stable Selvin Zambrano MD Nov 28, 2017 09:31
[2017-11-28] MEDS ORDERED: TRAM50 PO (09:54)
== END 2017-11-28 10:02 | disposition home or self-care (01) ==
LOC: NEPD 08:11
DX: M25.461 Effusion, right knee (principal); E78.00 Pure hypercholesterolemia, unspecified; I10 Essential (primary) hypertension
CPT/HCPCS: 73564; 99283